=== PATIENT | male | born 1965 | race Two or more races ===

== ENCOUNTER → 2020-10-15 | Outpatient (CLI) | payer OTHER | LOC: SPEC 15:05 | PROVIDERS: ATTEND Student in an Organized Health Care Education/Training Program | DX: R06.02 Shortness of breath (principal) | CPT/HCPCS: 36415; 84484 ==

== ENCOUNTER → 2021-05-10 | Outpatient (CLI) | payer OTHER ==
[2021-05-10 20:40] LABS: ALBUMIN 3.2 g/dL (3.4-5.0); ALK PHOS 57 U/L (46-116); ALT (SGPT) 47 U/L (16-63); ANION GAP 8 (6-14); AST (SGOT) 20 U/L (15-37); BLOOD UREA NITROGEN 17 mg/dL (8-26); BUN/CREATININE RATIO 17 (6-20); CALCIUM 8.1 mg/dL (8.5-10.1); CARBON DIOXIDE 27 mmol/L (21-32); CHLORIDE 103 mmol/L (98-107); GFR 77.6; GLUCOSE 330 mg/dL (70-99); POTASSIUM 4.9 mmol/L (3.5-5.1); SODIUM 138 mmol/L (136-145); TOTAL BILIRUBIN 0.5 mg/dL (0.2-1.0); TOTAL PROTEIN 6.5 g/dL (6.4-8.2); VANC TR 9.5 mcg/mL (10.0-20.0)
[2021-05-10 20:44] LABS: BASO % 1 % (0-3); EOS # 0.1 x10^3/uL (0.0-0.7); EOS % 2 % (0-3); HEMATOCRIT 40.1 % (39.0-53.0); HEMOGLOBIN 13.2 g/dL (13.0-17.5); LYMPH # 1.3 x10^3/uL (1.0-4.8); LYMPH % 17 % (24-48); MEAN CORPUSCULAR HEMOGLOBIN 30 pg (25-35); MEAN CORPUSCULAR HGB CONC 33 g/dL (31-37); MEAN CORPUSCULAR VOLUME 91 fL (79-100); MONO # 0.8 x10^3/uL (0.0-1.1); MONO % 11 % (0-9); NEUT # 5.2 x10^3uL (1.8-7.7); NEUT % 70 % (31-73); PLATELET COUNT 104 x10^3/uL (140-400); RED CELL DISTRIBUTION WIDTH 14.5 % (11.5-14.5); WHITE BLOOD COUNT 7.4 x10^3/uL (4.0-11.0)
== END ==
LOC: LAB 17:12
PROVIDERS: ATTEND Family Medicine
DX: S91.101D Unspecified open wound of right great toe without damage to nail, subsequent encounter (principal); X58.XXXD Exposure to other specified factors, subsequent encounter
CPT/HCPCS: 36415; 80053; 80202; 85025

== ENCOUNTER → 2021-05-17 | Outpatient (CLI) | payer OTHER ==
[2021-05-17 09:29] LABS: BASO % 1 % (0-3); EOS # 0.2 x10^3/uL (0.0-0.7); EOS % 3 % (0-3); HEMATOCRIT 40.2 % (39.0-53.0); HEMOGLOBIN 13.3 g/dL (13.0-17.5); LYMPH # 1.7 x10^3/uL (1.0-4.8); LYMPH % 22 % (24-48); MEAN CORPUSCULAR HEMOGLOBIN 30 pg (25-35); MEAN CORPUSCULAR HGB CONC 33 g/dL (31-37); MEAN CORPUSCULAR VOLUME 90 fL (79-100); MONO # 0.6 x10^3/uL (0.0-1.1); MONO % 8 % (0-9); NEUT # 5.2 x10^3uL (1.8-7.7); NEUT % 67 % (31-73); PLATELET COUNT 104 x10^3/uL (140-400); RED BLOOD COUNT 4.47 x10^6/uL (4.30-5.70); RED CELL DISTRIBUTION WIDTH 14.2 % (11.5-14.5); WHITE BLOOD COUNT 7.8 x10^3/uL (4.0-11.0)
[2021-05-17 09:41] LABS: ALBUMIN 3.4 g/dL (3.4-5.0); ALBUMIN/GLOBULIN RATIO 1.1 (1.0-1.7); ALK PHOS 57 U/L (46-116); ALT (SGPT) 37 U/L (16-63); ANION GAP 10 (6-14); AST (SGOT) 18 U/L (15-37); BLOOD UREA NITROGEN 12 mg/dL (8-26); BUN/CREATININE RATIO 12 (6-20); CALCIUM 8.1 mg/dL (8.5-10.1); CARBON DIOXIDE 27 mmol/L (21-32); CHLORIDE 105 mmol/L (98-107); GFR 77.6; GLUCOSE 174 mg/dL (70-99); POTASSIUM 4.2 mmol/L (3.5-5.1); SODIUM 142 mmol/L (136-145); TOTAL BILIRUBIN 0.5 mg/dL (0.2-1.0); TOTAL PROTEIN 6.5 g/dL (6.4-8.2); VANC TR 13.2 mcg/mL (10.0-20.0)
== END ==
LOC: EEVIPCON 09:06 → SPEC 09:06
PROVIDERS: ATTEND Family Medicine
DX: S91.101D Unspecified open wound of right great toe without damage to nail, subsequent encounter (principal); X58.XXXD Exposure to other specified factors, subsequent encounter
CPT/HCPCS: 36415; 80053; 80202; 85025

== ENCOUNTER → 2021-05-24 | Outpatient (CLI) | payer OTHER ==
[2021-05-24 08:17] LABS: BASO % 0 % (0-3); EOS # 0.4 x10^3/uL (0.0-0.7); EOS % 5 % (0-3); HEMATOCRIT 42.8 % (39.0-53.0); HEMOGLOBIN 14.3 g/dL (13.0-17.5); LYMPH # 1.8 x10^3/uL (1.0-4.8); LYMPH % 20 % (24-48); MEAN CORPUSCULAR HEMOGLOBIN 31 pg (25-35); MEAN CORPUSCULAR HGB CONC 33 g/dL (31-37); MEAN CORPUSCULAR VOLUME 91 fL (79-100); MONO # 0.7 x10^3/uL (0.0-1.1); MONO % 9 % (0-9); NEUT # 5.9 x10^3uL (1.8-7.7); NEUT % 67 % (31-73); PLATELET COUNT 100 x10^3/uL (140-400); RED CELL DISTRIBUTION WIDTH 14.3 % (11.5-14.5); WHITE BLOOD COUNT 8.9 x10^3/uL (4.0-11.0)
[2021-05-24 08:27] LABS: ALBUMIN 3.3 g/dL (3.4-5.0); ALK PHOS 62 U/L (46-116); ALT (SGPT) 34 U/L (16-63); ANION GAP 7 (6-14); AST (SGOT) 16 U/L (15-37); BLOOD UREA NITROGEN 15 mg/dL (8-26); BUN/CREATININE RATIO 14 (6-20); CALCIUM 8.6 mg/dL (8.5-10.1); CARBON DIOXIDE 31 mmol/L (21-32); CHLORIDE 104 mmol/L (98-107); CREATININE 1.1 mg/dL (0.7-1.3); GFR 69.5; GLUCOSE 172 mg/dL (70-99); POTASSIUM 4.5 mmol/L (3.5-5.1); SODIUM 142 mmol/L (136-145); TOTAL BILIRUBIN 0.7 mg/dL (0.2-1.0); TOTAL PROTEIN 6.7 g/dL (6.4-8.2); VANC TR 14.8 mcg/mL (10.0-20.0)
== END ==
LOC: EEVIPCON 07:27 → SPEC 07:27
PROVIDERS: ATTEND Family Medicine
DX: S91.101D Unspecified open wound of right great toe without damage to nail, subsequent encounter (principal); X58.XXXD Exposure to other specified factors, subsequent encounter
CPT/HCPCS: 36415; 80053; 80202; 85025

== ENCOUNTER → 2021-05-31 | Outpatient (CLI) | payer OTHER ==
[2021-05-31 11:03] LABS: BASO # 0.1 x10^3/uL (0.0-0.2); BASO % 1 % (0-3); EOS # 0.3 x10^3/uL (0.0-0.7); EOS % 5 % (0-3); HEMATOCRIT 37.7 % (39.0-53.0); HEMOGLOBIN 12.4 g/dL (13.0-17.5); LYMPH # 1.3 x10^3/uL (1.0-4.8); LYMPH % 17 % (24-48); MEAN CORPUSCULAR HEMOGLOBIN 30 pg (25-35); MEAN CORPUSCULAR HGB CONC 33 g/dL (31-37); MEAN CORPUSCULAR VOLUME 91 fL (79-100); MONO # 0.7 x10^3/uL (0.0-1.1); MONO % 10 % (0-9); NEUT # 5.1 x10^3uL (1.8-7.7); NEUT % 68 % (31-73); PLATELET COUNT 123 x10^3/uL (140-400); RED BLOOD COUNT 4.15 x10^6/uL (4.30-5.70); WHITE BLOOD COUNT 7.5 x10^3/uL (4.0-11.0)
[2021-05-31 11:57] LABS: ALBUMIN 2.7 g/dL (3.4-5.0); ALBUMIN/GLOBULIN RATIO 0.8 (1.0-1.7); ALK PHOS 54 U/L (46-116); ALT (SGPT) 23 U/L (16-63); ANION GAP 9 (6-14); AST (SGOT) 14 U/L (15-37); BLOOD UREA NITROGEN 13 mg/dL (8-26); BUN/CREATININE RATIO 13 (6-20); CARBON DIOXIDE 29 mmol/L (21-32); CHLORIDE 104 mmol/L (98-107); GFR 77.6; GLUCOSE 232 mg/dL (70-99); POTASSIUM 3.9 mmol/L (3.5-5.1); SODIUM 142 mmol/L (136-145); TOTAL BILIRUBIN 0.4 mg/dL (0.2-1.0); TOTAL PROTEIN 5.9 g/dL (6.4-8.2)
== END ==
LOC: EEVIPCON 10:11 → SPEC 10:11
PROVIDERS: ATTEND Family Medicine
DX: S91.101D Unspecified open wound of right great toe without damage to nail, subsequent encounter (principal); X58.XXXD Exposure to other specified factors, subsequent encounter
CPT/HCPCS: 36415; 80053; 80202; 85025

== ENCOUNTER → 2021-06-07 | Outpatient (CLI) | payer OTHER ==
[2021-06-07 09:51] LABS: BASO # 0.1 x10^3/uL (0.0-0.2); BASO % 1 % (0-3); EOS # 0.3 x10^3/uL (0.0-0.7); EOS % 3 % (0-3); HEMATOCRIT 40.7 % (39.0-53.0); HEMOGLOBIN 13.3 g/dL (13.0-17.5); LYMPH # 1.6 x10^3/uL (1.0-4.8); LYMPH % 16 % (24-48); MEAN CORPUSCULAR HEMOGLOBIN 30 pg (25-35); MEAN CORPUSCULAR HGB CONC 33 g/dL (31-37); MEAN CORPUSCULAR VOLUME 92 fL (79-100); MONO # 0.8 x10^3/uL (0.0-1.1); MONO % 8 % (0-9); NEUT # 7.7 x10^3uL (1.8-7.7); NEUT % 73 % (31-73); PLATELET COUNT 170 x10^3/uL (140-400); RED BLOOD COUNT 4.43 x10^6/uL (4.30-5.70); RED CELL DISTRIBUTION WIDTH 14.2 % (11.5-14.5); WHITE BLOOD COUNT 10.6 x10^3/uL (4.0-11.0)
[2021-06-07 09:58] LABS: ALBUMIN 3.2 g/dL (3.4-5.0); ALBUMIN/GLOBULIN RATIO 0.9 (1.0-1.7); ALK PHOS 59 U/L (46-116); ALT (SGPT) 29 U/L (16-63); ANION GAP 6 (6-14); AST (SGOT) 17 U/L (15-37); BLOOD UREA NITROGEN 18 mg/dL (8-26); BUN/CREATININE RATIO 16 (6-20); CALCIUM 8.2 mg/dL (8.5-10.1); CARBON DIOXIDE 30 mmol/L (21-32); CHLORIDE 104 mmol/L (98-107); CREATININE 1.1 mg/dL (0.7-1.3); GFR 69.5; GLUCOSE 258 mg/dL (70-99); POTASSIUM 4.7 mmol/L (3.5-5.1); SODIUM 140 mmol/L (136-145); TOTAL BILIRUBIN 0.4 mg/dL (0.2-1.0); TOTAL PROTEIN 6.6 g/dL (6.4-8.2); VANC TR 16.6 mcg/mL (10.0-20.0)
== END ==
LOC: LAB 08:50
PROVIDERS: ATTEND Family Medicine
DX: M86.9 Osteomyelitis, unspecified (principal)
CPT/HCPCS: 36415; 80053; 80202; 85025